=== PATIENT | male | born 1965 ===

== ENCOUNTER 2017-03-27 17:15 | Inpatient (IN) | payer SELFPAY ==
[2017-03-27] MEDS ORDERED: Ketorolac Tromethamine 30 MG/ML VIAL ONE (17:56)
--- NOTE | 2017-03-27 18:06 | RAD ---
SINGLE VIEW OF THE CHEST 03/27/17 HISTORY: chest pain FINDINGS: Single view of the chest shows a normal sized cardiomediastinal silhouette. There is no evidence of c onsolidation, mass, or pleural effusion. The bones are unremarkable. IMPRESSION: No evidence of acute cardiopulmonary disease. POS: [facility]
[2017-03-27] MEDS ORDERED: diphenhydrAMINE 25 MG CAP PO PRN (18:17)
[2017-03-27] MEDS ORDERED: Naloxone HCl 0.4 mg/ml Vial IV PRN (18:17)
[2017-03-27] MEDS ORDERED: diphenhydrAMINE 50 MG/ML VIAL IVP PRN (18:17)
[2017-03-27] MEDS ORDERED: HYDROmorphone 10 mg/100 ml CADD IVPB PRN (18:17)
[2017-03-27] MEDS ORDERED: Dextrose 5% in Water 1,000 ML IV PRN (18:17)
[2017-03-27] MEDS ORDERED: diphenhydrAMINE 50 MG/ML VIAL IM PRN (18:17)
[2017-03-27] MEDS ORDERED: Ondansetron HCl/PF 4 MG/2 ML Vial IVP PRN (18:17)
[2017-03-27] MEDS ORDERED: Dextrose 50% Abboject 50 ML SYRINGE SLOW IVP PRN (18:17)
[2017-03-27] MEDS ORDERED: Promethazine HCl 25 MG/ML VIAL IM PRN (18:17)
[2017-03-27 18:28] LABS: Hemoglobin 13.2 g/dL (14.0-18.0); Mean Corpuscular HGB CONC 33.3 g/dL (32.0-36.0); Mean Corpuscular Hemoglobin 30.7 pg (27.0-31.0); Mean Corpuscular Volume 92.2 fl (80.0-94.0); Mean Platelet Volume 7.2 fL (7.4-10.4); Platelet Count 264 thou/uL (130-400); White Blood Cell (WBC) Count 17.9 thou/uL (4.8-10.8)
[2017-03-27] MEDS ORDERED: Adacel (T-DAP) 0.5 ML VIAL ONE (18:29)
[2017-03-27] MEDS ORDERED: Communication Order-Pharmacy FS SCH (18:30)
--- NOTE | 2017-03-27 18:31 | RAD ---
SINGLE VIEW OF THE ABDOMEN 03/27/17 COMPARISON: None. HISTORY: Fall from 20 feet with abdominal pain. FINDINGS: Single view of the abdomen shows a nonspecific, nonobstructed bowel gas pattern. Degenerative changes are seen in the spine. No suspicious calcifications are present. IMPRESSION: Nonobstructed bowel gas pattern. POS: [facility]
[2017-03-27 18:45] LABS: Band 7 % (5-11); Lymphocytes 1 % (21-51); MDiff Complete? YES; Monocytes 1 % (0-10); Neutrophil 91 % (42-75); PLT Morphology Comment Appears Adequate
--- NOTE | 2017-03-27 19:12 | HP ---
DATE OF ADMISSION: 03/27/2017 HISTORY OF PRESENT ILLNESS: This is a 51-year-old -[place] man, who was on top of a roof rep lacing wooden shingles. He fell 20 feet to the ground, landing on his back. Although patient denied any head trauma, he lost two incisors with this fall. He denied any loss of consciousness. Inciden t occurred at approximately 10:30 a.m. He was evaluated in [place] and transferred to [facility] in [place], [place] for upper level care of polytrauma. It has been over 6 hours since the fall. The patient arrived hemodynamically stable with a Bernabe coma scale of 15. He is moving all extremi ties and following commands. He reports 10/10 back and anterior chest wall pain. He denied any dysp ananth. He reports also 3/10 new onset abdominal pain. PAST MEDICAL HISTORY: The patient denies any previous medical problems. PAST SURGICAL HISTORY: Denies any previous surgeries. SOCIAL HISTORY: He is single, lives at home with his brother. 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 He admit s to smoking half pack of cigarettes per day and has done so for over 20 years. He drinks 2-3 beers daily. He denies any illicit drug abuse. FAMILY HISTORY: Notable for essential hypertension in both parents and his father from complica tions of coronary arterial disease. He denies any family history of diabetes mellitus or cancer. CURRENT MEDICATIONS: None. ALLERGIES: CODEINE. REVIEW OF SYSTEMS: A 10-point review of systems essentially unremarkable except for as stated in pas t medical history and chief complaint. PHYSICAL EXAMINATION: GENERAL: This reveals a 51-year-old normally developed man, who is otherwise coherent and interactiv e and appears stated age. The patient is alert and oriented x3, appears to be in moderate acute dist ress secondary to pain in the aforementioned areas. VITAL SIGNS: Initial vital signs, blood pressure 152/107, pulse 84, respiratory rate 30, temperature 98.6 degrees Fahrenheit, oxygen saturation 96% on room air. Once patient was given Toradol 30 mg in travenously, followup blood pressure was noted at 122/79, pulse is 81. HEENT: Reveals normocephalic and atraumatic. His pupils are equal, round, and reactive to light and accommodation. Extraocular muscles are intact bilaterally. He has no sclerae icterus present. Ora l mucosa is pink and moist. No lesions are noted. He has dental fractures involving the lower two i ncisors. NECK: Cervical spine is nontender to palpation, active or passive range of motion. HEART: Reveals regular rate and rhythm, no murmurs or gallops auscultated. LUNGS: Clear to auscultation bilaterally. Breathing is regular and unlabored. ABDOMEN: Soft and nondistended. He has nonspecific abdominal tenderness to palpation with no gross rebound tenderness present. Bowel sounds in all four quadrants appear normoactive. Liver and spleen are nonpalpable below costal margins. EXTREMITIES: Reveals 2+ radial and pedal pulses bilaterally. Right upper extremity is immobilized i n a long splint. He has good capillary refills. MUSCULOSKELETAL: Thoracic spine is nontender to palpation. The patient was maintained in neutral po sition during examination. I did not attempt to palpate the lumbar spine, known appropriate injuries in the area. PERTINENT LABORATORY AND RADIOGRAPHIC STUDIES: I have reviewed all laboratory and radiographic studi es from [place], which includes CBC with 9500 white blood cells, hemoglobin 13.7, hematocrit is 41 .4, platelet count is 268,000. Metabolic profile: Sodium 134, potassium 3.7, chloride is 101, bicar bonate 21, BUN 12, creatinine is 1.1, glucose is 97, total bilirubin 0.7, AST and ALT normal at 60 an d 75 respectively. Serum alcohol level is 45 mg per deciliter. Toxicology screen is negative. I nunez ve also reviewed the radiographic studies, which includes an unremarkable head and cervical spine CT scan. Facial CT scan does not reveal any fractures except for the dental fractures. CT scan of the chest is unremarkable for any acute intrathoracic pathology. CT scan of the abdomen and pelvis revea led no acute intraabdominal pathology. CT scan of the thoracic spine revealed no fractures or disloc ation. CT scan of the lumbar spine is remarkable for a 50% compression of L1 with no significant ret ropulsion. X-ray of the right upper extremity is remarkable for nondisplaced compression fractures o f the distal radius and ulna. IMPRESSION: 1. Status post fall from a 20 foot roof. 2. Dental fractures. 3. L1 compression fracture with no neurological deficits. 4. Complete nondisplaced right distal radius and ulna fracture at the wrist. 5. History of ethanol abuse. PLAN: 1. Neurosurgical consultation regarding the L1 fracture. 2. Orthopedic surgical consultation regarding the right wrist fracture. 3. The patient will be admitted in the general surgical floor where we will continue with physical a nd occupational therapy. 4. Spinal column will be mobilized as patient will be placed supine flat until definitive neurosurgi christofer evaluation has been accomplished. 5. Continue with serial neurological and physical examination. 6. Initiate nonpharmacological VTE prophylaxis. 7. Due to the new onset abdominal pain, we will repeat CBC and serum lipase to exclude any acute ons et pancreatitis of which the patient is at risk for. Above findings and plan discussed with the patient who indicates understanding of information given. I answered his questions. The patient has granted consent for this admission.
--- NOTE | 2017-03-27 19:19 | RAD ---
TWO VIEWS OF THE RIGHT WRIST: 03/27/17 COMPARISON: None. HISTORY: Right wrist injury with pain. FINDINGS: Two views of the right wrist shows an overlying splint which obscures fine bony and soft tissue detai l. There is a comminuted fracture of the distal radial metaphysis which appears to extend to the radi ocarpal joint. An associated ulnar styloid fracture may also be present. IMPRESSION: Comminuted intra-articular distal radius fracture. POS: [facility]
--- NOTE | 2017-03-27 21:00 | PRG ---
DATE OF SERVICE: 03/27/2017 SUBJECTIVE: This is a 51-year-old male admitted to our hospital earlier today by the trauma team for compression fracture, pulmonary contusions and right wrist fracture, status post fall from roof. Ne urosurgery has seen and evaluated the patient. They have ordered a TLSO brace. I have discussed the case with Orthopedic Surgery. They planned for operative intervention to his wrist tomorrow. Upon my evaluation, the patient is resting in bed and vocalized no complaint. OBJECTIVE: VITAL SIGNS: Reviewed and stable. GENERAL: The patient is resting in bed, in no acute distress. RESPIRATORY: Breathing is nonlabored. EXTREMITIES: Orthopedic dressing is clean, dry and intact. ASSESSMENT AND PLAN: As documented in history and physical. Continue care as ordered. Continue to monitor. N.p.o. at midnight. Gentle IV fluid hydration and a.m. labs
[2017-03-27] MEDS: Sodium Chloride 0.9% 1,000 ML IV SCH (21:02)
[2017-03-27 21:31] VITALS: BMI 22.9
[2017-03-27] MEDS: Ketorolac Tromethamine 30 MG/ML VIAL IVP SCH (22:15)
--- NOTE | 2017-03-27 22:36 | CON ---
DATE OF CONSULTATION: 03/27/2017 ATTENDING PHYSICIAN: Dr. Cristhian Elias. HISTORY OF PRESENT ILLNESS: The patient is a 51-year-old -[place] male who presented as a transfer from [facility] after falling 20 feet of a roof. Patient reports he lost his balance before falling backwards off the roof, incident occurred approximately 10:30 a.m. He was evaluated with trauma scans, which were notable for a dental fractures and L1 burst fracture with mild retropulsion. He also had obvious deformity of the right wrist and was found to have a right distal radius fracture and ulnar fracture of the right wrist. CT of the head and cervical spine were negative for acute injury. I have seen the patient at bedside. He is lying comfortably in the bed in no acute distress. He has a GCS of 15. He is A&O x4. He is complaining of some moderate pain to the low back. He is moving all extremities, 5/5 strength throughout. He has no sensation deficits and denies any saddle anesthesia or bowel or bladder issues. PAST MEDICAL HISTORY: Patient reports he is otherwise healthy, denies any other medical problems. PAST SURGICAL HISTORY: Patient denies any prior surgeries. SOCIAL HISTORY: He smokes approximately half pack of cigarettes per day, drinks socially. Denies any drug use. FAMILY HISTORY: Noncontributory. ALLERGIES: Patient is allergic to CODEINE. REVIEW OF SYSTEMS: Per HPI. PHYSICAL EXAMINATION: CONSTITUTIONAL: Resting comfortably in bed in no acute distress. GCS of 15. HEENT: Head: Normocephalic, atraumatic. Eyes: PERRLA. Extraocular movements intact. ENT: Oral mucosa is pink intact and moist. He has a normal voice. NECK: Free active range of motion, nontender to palpation. CARDIOVASCULAR: Regular rate and rhythm. LUNGS: Patient is breathing comfortably. Symmetric chest expansion. ABDOMEN: Nontender to palpation. No evidence of dyspnea. BACK: He has pain with any ROM of the back. MUSCULOSKELETAL: He has free active range of motion of all extremities. He has a splint on the right wrist. He has no reflex asymmetry or focal motor weakness. NEUROLOGIC: He is and A&O x4. No focal neurologic deficits are appreciated. ASSESSMENT AND PLAN: The patient sustainted an L1 burst fracture with mild retropulsion after a fall from a roof that was approximately 20 feet. He is neurologically intact with no focal motor weakness. I have ordered a TLSO brace , which the patient should wear all the time. We will plan to follow up with the patient as an outpatient basis in 4 weeks with repeat x-rays. Please reach out to Neurosurgery Service for additional questions or concerns. JIMMY
[2017-03-28] MEDS: Sodium Chloride 0.9% 1,000 ML IV SCH ×4 (03:54→21:35)
[2017-03-28] MEDS: Ketorolac Tromethamine 30 MG/ML VIAL IVP SCH ×3 (05:01→17:45)
[2017-03-28 05:34] LABS: #Lymphocytes 1.3 thou/uL (1.20-3.40); #Monocytes 0.8 thou/uL (0.11-0.59); #Neutrophils 9.3 thou/uL (1.40-6.50); %Basophils 0.4 % (0.0-1.0); %Eosinophils 0.1 % (0.0-10.0); %Lymphocytes 11.4 % (21.0-51.0); %Monocytes 7.3 % (0.0-10.0); %Neutrophils 80.8 % (42.0-75.0); Hemoglobin 12.9 g/dL (14.0-18.0); Mean Corpuscular HGB CONC 33.2 g/dL (32.0-36.0); Mean Corpuscular Hemoglobin 30.4 pg (27.0-31.0); Mean Corpuscular Volume 91.4 fl (80.0-94.0); Mean Platelet Volume 7.4 fL (7.4-10.4); Platelet Count 251 thou/uL (130-400); RBC Distribution Width 12.1 % (11.5-14.5); Red Blood Cell (RBC) Count 4.26 mill/uL (4.70-6.10); White Blood Cell (WBC) Count 11.4 thou/uL (4.8-10.8)
[2017-03-28 06:01] LABS: ALT (SGPT) 55 U/L (8-55); AST (SGOT) 52 U/L (5-34); Albumin 3.9 g/dL (3.5-5.0); Alkaline Phosphatase 67 U/L (40-150); Anion Gap 12 mmol/L (10-20); BUN (Urea Nitrogen) 11 mg/dL (8.9-20.6); Bilirubin, Total 1.2 mg/dL (0.2-1.2); Calc. Creatinine Clearance 107 mL/min (70-130); Calcium 8.5 mg/dL (7.8-10.44); Carbon Dioxide 22 mmol/L (22-29); Chloride 102 mmol/L (98-107); Estimated GFR-MDRD Greater than 90; Globulin 2.8 g/dL (2.4-3.5); Glucose 98 mg/dL (70-105); Potassium 4.3 mmol/L (3.5-5.1); Protein, Total 6.7 g/dL (6.0-8.3); Sodium 132 mmol/L (136-145)
[2017-03-28] MEDS ORDERED: CEFAZOLIN/Water 2 GM/20 ML SYRINGE SLOW IVP SCH (09:00)
--- NOTE | 2017-03-28 10:31 | CON ---
DATE OF CONSULTATION: 03/28/2017 We were asked to see patient via trauma in the Emergency Room. HISTORY OF PRESENT ILLNESS: He is a 51-year-old male who was replacing wood shingles. He fell about 20 feet to the ground, landing on his back. No loss of consciousness, but had significant back pain and right wrist pain after the fall. He was evaluated at [place] and after evaluation was transf erred to [facility] for higher level of care. He again complains of back pain. The right wrist is sore, but again it is splinted. He is able to move all of his digits well and denies any numbness a nd tingling. PAST MEDICAL HISTORY: He states he is healthy. PAST SURGICAL HISTORY: None. SOCIAL HISTORY: He resides with his brother. 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 He does smoke half pack of cigarettes . Has few ETOH beverages. FAMILY HISTORY: Noncontributory. CURRENT MEDICATIONS: None. ALLERGIES: CODEINE. REVIEW OF SYSTEMS: The patient is an otherwise healthy. His current complaints are back pain and a little shortness of breath, which he has given a breathing treatment for and right wrist pain. Rest of review of systems is negative. PHYSICAL EXAMINATION: GENERAL: Well-nourished male, alert, in no acute distress, resting in bed. Speech clear. Answers q uestions appropriately. He is alert and oriented x3. HEENT: Within normal limits. Face is symmetric, tongue midline. NECK: Supple. Trachea midline. MUSCULOSKELETAL: Right upper extremity is splinted. He is moving his digits well and has good sensa tions in left upper extremity and normal exam. Torso: Patient is in a TLSO brace. Lower extremity exams, he is moving both of those fairly well, but has a lot of pain in doing so with his lumbar comp ression fracture. ASSESSMENT: 1. Trauma falling after 20 feet. 2. Multiple injuries. 3. Right distal radial fracture and ulnar fracture. PLAN: I spoke with patient and he is amenable to go forth with surgery. I explained that we are goi ng to do an ORIF of the right wrist with some plating and will be in a splint afterwards. As for the rest of his injuries, they will be managed by Trauma. PT will start after the wrist if trauma is am enable to go forth without any stable. Reviewed x-rays with Dr. Dc and patient and he understand s the procedure that he is about to undergo today. Currently, he is n.p.o. We will get him consente d and antibiotics and get admitted to the OR this morning.
[2017-03-28] MEDS ORDERED: CEFAZOLIN/Water 2 GM/20 ML SYRINGE ONE (10:49)
[2017-03-28] MEDS ORDERED: Fentanyl 100 MCG/2 ML VIAL ONE ×3 (11:31→13:29)
[2017-03-28] MEDS ORDERED: traMADol HCl 50 MG TAB PO PRN (11:45)
[2017-03-28] MEDS ORDERED: HYDROcodone/Acetaminophen 10/325 mg Tablet PO PRN ×2 (11:46)
[2017-03-28] MEDS ORDERED: Meperidine HCl/PF 25 MG/ML VIAL ONE (12:45)
[2017-03-28] MEDS ORDERED: Lidocaine 1% PF 5 ML VIAL ONE (13:53)
[2017-03-28] MEDS ORDERED: Ondansetron HCl/PF 4 MG/2 ML Vial ONE (13:53)
[2017-03-28] MEDS ORDERED: Propofol 200 MG/20 ML VIAL ONE (13:53)
--- NOTE | 2017-03-28 13:59 | RAD ---
RIGHT WRIST INTRAOPERATIVE FLUOROSCOPY 3 VIEWS: HISTORY: Risk fracture. FINDINGS: Intraoperative fluoroscopy was provided for internal fixation as performed by Dr. Dc. Three spot fluoroscopic images show volar compression plate and multiple screws to transfix the comminuted dist al radial fracture, in anatomic alignment. Fluoro time=14 seconds. POS: [facility]
--- NOTE | 2017-03-28 16:04 | PRG ---
DATE OF SERVICE: 03/28/2017 SUBJECTIVE: The patient is hospital day #2 status post fall from a roof, which he sustained an L1 co mpression fracture, a right distal radius fracture and dental injury. The patient overnight was eval uated by Neurosurgery. They recommended fulltime TLSO brace when out of bed or when sitting up more than 30 degrees. The patient is scheduled to undergo orthopedic procedure of his right wrist fractur e for his displaced distal radius fracture. Otherwise, the patient did well overnight. His pain was controlled with a BOOK SHELVER and he has been n.p.o. OBJECTIVE: VITAL SIGNS: Temperature is 99.5, heart rate 89, blood pressure 123/69, respirations 16 and oxygen s aturation 96% on room air. GENERAL: The patient is resting comfortably in bed. He is awake, alert, and oriented x3. [place] c mari scale is 15. HEENT: Shows his dental injuries, otherwise unremarkable. NECK: Nontender. Trachea is midline. There is no JVD. LUNGS: Clear to auscultation with good inspiratory and expiratory effort. HEART: Regular rate and rhythm. ABDOMEN: Soft, flat, nontender with hypoactive bowel sounds. Pelvis stable. EXTREMITIES: Neurovascularly intact x4. LABORATORY FINDINGS: White blood cell count 11.4, hemoglobin 12.9, hematocrit 39.0 and platelets 251 . Sodium 132, potassium 4.3, chloride 102, CO2 of 22, BUN 11, creatinine 0.85 and glucose 98. LFTs are unremarkable. There are no radiographs to review this morning. ASSESSMENT AND PLAN: 1. Status post fall from roof. 2. L1 compression fractures to be treated with a TLSO brace. 3. Displaced right distal radius fracture. Awaiting orthopedic operative intervention. 4. Dental injuries. Current plan is to have the patient follow up with his dentist as an outpatient . We will continue supportive care and make adjustments postoperatively. The evaluation and examina tion were discussed with Dr. Mercado during rounds this morning.
--- NOTE | 2017-03-28 18:57 | OP ---
PREOPERATIVE DIAGNOSIS: Displaced intra-articular fracture, distal radius. POSTOPERATIVE DIAGNOSIS: Displaced intra-articular fracture, distal radius. SURGEON: Yann Dc M.D. DATA TYPIST: Abimael Jeter PA-C. BLOOD LOSS: Minimal. SPECIMENS: None. DRAINS: None. COMPLICATIONS: None. DESCRIPTION OF PROCEDURE: The patient was taken to the operating room where general anesthesia was i nduced. Lower arm was prepped and draped in usual sterile fashion. After exsanguination, tourniquet was inflated to 250 mmHg. I made a FCR approach. The fracture was identified and reduced as anatom ically as possible. There was some dorsal comminution; I could not totally correct that. This is an intra-articular fracture with a free floating styloid piece and a DRUJ piece. A 5-hole x 3-hole Syn thes variable angle plate was applied to the volar cortex, screws were inserted in the usual fashion. X-rays were obtained, which showed appropriate reduction and placement. Tourniquet was released. Irrigation was performed. Hemostasis obtained. Subcutaneous tissue closed with 2-0 Vicryl, the skin was closed with allan. Sterile dressings applied. There were no complications.
[2017-03-28] MEDS: Acetaminophen 500 MG TAB PO SCH (21:36)
[2017-03-28] MEDS: traMADol HCl 50 MG TAB PO SCH (21:36)
--- NOTE | 2017-03-28 22:47 | PRG ---
DATE OF SERVICE: 03/28/2017 SUBJECTIVE: [facility] 51[facility] postop day 0, status post fall from roof with lumbar fracture, pulmonary contusion, and right wrist fracture. Patient has returned from the operating room after surgical intervention to his wrist. Upon my evaluation, he vocalizes no complai nts. States the pain has been controlled. OBJECTIVE: VITAL SIGNS: Reviewed and stable. GENERAL: Patient is resting in bed in no acute distress. Breathing is nonlabored. ASSESSMENT AND PLAN: As documented in daily progress note. Continue care as ordered. Continue to m onitor. PT and OT in the morning.
[2017-03-29] MEDS: Ketorolac Tromethamine 30 MG/ML VIAL IVP SCH ×4 (00:51→17:52)
[2017-03-29] MEDS: traMADol HCl 50 MG TAB PO SCH ×4 (04:28→21:33)
[2017-03-29] MEDS: Acetaminophen 500 MG TAB PO SCH ×4 (04:29→21:32)
[2017-03-29 06:07] LABS: #Lymphocytes 1.3 thou/uL (1.20-3.40); #Monocytes 0.8 thou/uL (0.11-0.59); #Neutrophils 6.2 thou/uL (1.40-6.50); %Basophils 0.2 % (0.0-1.0); %Eosinophils 0.3 % (0.0-10.0); %Lymphocytes 15.5 % (21.0-51.0); %Monocytes 9.9 % (0.0-10.0); %Neutrophils 74.1 % (42.0-75.0); Mean Corpuscular HGB CONC 32.6 g/dL (32.0-36.0); Mean Corpuscular Hemoglobin 30.1 pg (27.0-31.0); Mean Corpuscular Volume 92.3 fl (80.0-94.0); Mean Platelet Volume 7.2 fL (7.4-10.4); Platelet Count 215 thou/uL (130-400); RBC Distribution Width 12.1 % (11.5-14.5); Red Blood Cell (RBC) Count 3.98 mill/uL (4.70-6.10); White Blood Cell (WBC) Count 8.4 thou/uL (4.8-10.8)
[2017-03-29] MEDS: Sodium Chloride 0.9% 1,000 ML IV SCH (06:12)
[2017-03-29 06:27] LABS: Anion Gap 10 mmol/L (10-20); BUN (Urea Nitrogen) 7 mg/dL (8.9-20.6); Calc. Creatinine Clearance 118 mL/min (70-130); Calcium 8.3 mg/dL (7.8-10.44); Carbon Dioxide 25 mmol/L (22-29); Chloride 103 mmol/L (98-107); Estimated GFR-MDRD Greater than 90; Glucose 112 mg/dL (70-105); Magnesium 2.2 mg/dL (1.6-2.6); Phosphorus 2.3 mg/dL (2.3-4.7); Sodium 134 mmol/L (136-145)
--- NOTE | 2017-03-29 19:01 | PRG ---
DATE OF SERVICE: 03/29/2017 ATTENDING PHYSICIAN: Dr. Mercado. SUBJECTIVE: The patient is hospital day #3 status post 20-foot fall from a roof in which he sustaine d a L1 compression fracture, right radius and ulna fracture as well as a dental injury. He is now po stop day #1 status post open reduction internal fixation of his right distal radius. The patient masha erated that procedure well. He was also fitted with a TLSO brace by Neurosurgery. Patient has been up and ambulating around the floor this morning. His appetite is good. He does report passing some gas, but has not had a bowel movement. He says his pain is well controlled. OBJECTIVE: VITAL SIGNS: BP 124/72, pulse 78, temperature 98.4, respirations 14, O2 sat 92% on room air. GENERAL: Patient is resting comfortably in bed. He is alert and in no acute distress. HEENT: Unremarkable except for his dental injuries. RESPIRATORY: His lungs are clear to auscultation bilaterally with normal effort. CARDIOVASCULAR: He has a regular rate and rhythm, 2+ distal pulses bilaterally. ABDOMEN: Soft, nontender, nondistended. His bowel sounds are hypoactive. EXTREMITIES: He is neurovascularly intact x4. LABORATORY DATA: Hematology: White blood cells 8.4, hemoglobin 12.0, hematocrit 36.7, platelets 215 . Chemistry: Sodium 134, potassium 4.0, chloride 103, bicarbonate 25, BUN 7, creatinine 0.77, gluco se 112. RADIOGRAPHIC FINDINGS: There are no radiographs reviewed today. ASSESSMENT: 1. Status post fall from 20 foot height. 2. L1 compression fracture. 3. Displaced distal right radius fracture. 4. Multiple missing upper incisors. PLAN: The patient has been wearing his TLSO brace and has been ambulating around the floor without d ifficulty. His pain is well controlled. His Mcwilliams catheter has been removed and he is able to void. His only barrier to discharge at this point is that he has still had a bowel movement. We have ord roxanna Schultz to help with this. This patient was seen and examined along with Dr. Angelito Mercado who agrees with the assessment and pl an.
[2017-03-29] MEDS ORDERED: Senokot S 8.6-50 MG TAB PO SCH (21:00)
[2017-03-29] MEDS: Senokot S 8.6-50 MG TAB PO SCH (21:33)
--- NOTE | 2017-03-29 21:46 | PRG ---
DATE OF SERVICE: 03/29/2017 SUBJECTIVE: This is a 51-year-old gentleman status post fall from roof with lumbar fracture, radial fracture and pulmonary contusions. The patient is working with physical therapy and mobilizing. Jaison n has been controlled with p.o. analgesics; however, he has not had a bowel movement. He was started on stool softeners this evening. Upon my evaluation, the patient localizes no complaints. OBJECTIVE: VITAL SIGNS: Reviewed and stable. GENERAL: The patient is resting in bed. No acute distress. Breathing is nonlabored. He is wearing his TLSO brace. ASSESSMENT AND PLAN: As documented in daily progress note. Continue care as ordered. Continue to m onitor. Once patient has had a bowel movement, he will be a candidate for discharge.
[2017-03-30] MEDS: Ketorolac Tromethamine 30 MG/ML VIAL IVP SCH (00:41)
[2017-03-30] MEDS: traMADol HCl 50 MG TAB PO SCH ×4 (02:20→20:23)
[2017-03-30] MEDS: Acetaminophen 500 MG TAB PO SCH ×4 (02:21→20:22)
[2017-03-30] MEDS: Polyethylene Glycol 3350 17 GM Packet PO SCH (08:22)
[2017-03-30] MEDS: Senokot S 8.6-50 MG TAB PO SCH ×2 (08:23→20:22)
--- NOTE | 2017-03-30 19:21 | PRG ---
DATE OF SERVICE: 03/30/2017 ATTENDING PHYSICIAN: Dr. Ander Francis. SUBJECTIVE: The patient is hospital day #4 status post 20-foot fall from a roof in which he sustaine d an L1 compression fracture, right radius and ulna fracture as well as a dental injury. He is now p ostop day #2 status post ORIF of his right distal radius. The patient tolerated that procedure well. He has been fitted with a TLSO brace by Neurosurgery. The patient is tolerating a regular diet wel l and reports his pain control is adequate. However, he has not had a bowel movement. He is passing gas, however. OBJECTIVE: VITAL SIGNS: BP 161/87, pulse 79, temperature 98.4, respirations 18, O2 sat 94% on room air. GENERAL: The patient is resting comfortably in bed. He is alert, in no acute distress. HEENT: Unremarkable except for upper incisor damage. RESPIRATORY: His lungs are clear to auscultation bilaterally with normal effort. CARDIOVASCULAR: Regular rate and rhythm, 2+ distal pulses bilaterally. ABDOMEN: Soft, nontender, nondistended. Bowel sounds are normal. EXTREMITIES: He is neurovascularly intact x4. NEUROLOGIC: His GCS is 15. LABORATORY FINDINGS: There are no significant laboratory findings. RADIOGRAPHIC FINDINGS: There are no images to review today. ASSESSMENT: 1. Status post fall from 20-foot height. 2. L1 compression fracture. 3. Displaced distal right radius fracture. 4. Missing upper incisors. PLAN: The patient continues to report adequate pain control and has been ambulating around the floor without difficulty. He still has not had a bowel movement despite having both Senokot and MiraLax. His only barrier to discharge at this point is his return of bowel function. Once that returns, he will be discharged home. This patient was seen and examined along with Dr. Ander Francis on rounds this morning who agrees wi th the assessment and plan.
--- NOTE | 2017-03-30 21:19 | PRG ---
DATE OF SERVICE: 03/30/2017 SUBJECTIVE: This is a 51-year-old male status post fall with pulmonary contusion, lumbar fracture an d right wrist fracture. The patient has remained hemodynamically stable and pain is controlled; donis anastasiia, he has not had a bowel movement. Upon my evaluation, the patient states he is passing gas, but did not have a bowel movement today and he vocalized no other complaints. OBJECTIVE: VITAL SIGNS: Reviewed and stable. GENERAL: The patient is sitting on the edge of bed, in no acute distress. RESPIRATORY: Breathing is nonlabored. ASSESSMENT AND PLAN: As documented in daily progress note. If no bowel movement tonight, add lactul ose tomorrow. Continue care as ordered. Continue to monitor.
[2017-03-30] MEDS: Ibuprofen 600 MG TAB PO SCH (21:55)
[2017-03-31] MEDS: traMADol HCl 50 MG TAB PO SCH ×3 (02:58→16:25)
[2017-03-31] MEDS: Acetaminophen 500 MG TAB PO SCH ×3 (02:59→16:25)
[2017-03-31] MEDS: Ibuprofen 600 MG TAB PO SCH ×2 (06:16→16:27)
[2017-03-31] MEDS: Senokot S 8.6-50 MG TAB PO SCH (08:43)
[2017-03-31] MEDS: Polyethylene Glycol 3350 17 GM Packet PO SCH (08:45)
--- NOTE | 2017-03-31 12:30 | DIS ---
DATE OF ADMISSION: 03/27/2017 DATE OF DISCHARGE: 03/31/2017 ADMITTING PHYSICIAN: Dr. Angelito Mercado. CONSULTING PHYSICIAN: 1. Dr. Yann Dc, Orthopedics. 2. Dr. Cristhian Elias, Neurosurgery. REASON FOR HOSPITALIZATION: Fall from a roof with L-spine and right wrist fracture. HOSPITAL DIAGNOSES: 1. Status post fall from 20 feet roof. 2. Dental fractures. 3. L1 compression fracture, no neurologic deficits. 4. Complete nondisplaced right distal radius and ulna fracture. 5. History of ETOH abuse. PROCEDURES: Open reduction external fixation right distal radius fracture. DATE OF SURGERY: 03/27/2017 SURGEON: Dr. Yann Dc. Please refer to Dr. Dc's complete operative report for details. PATIENT'S DISCHARGE CONDITION: Good. DISCHARGE DISPOSITION: Discharged to home. BRIEF HISTORY OF HOSPITALIZATION: The patient is a 51-year-old male, who was on his roof, replacing wood and shingles when he fell approximately 20 feet to the ground. He was taken to an outside [facility] where a right wrist fracture and L-spine fracture were identified. He was transferred to [facility] for higher level of care. He remained hemodynamically stable and neurologic intact. He was seen and evaluated by Dr. Mercado of the Trauma Service and admitted to the hospital. Dr. Dc, Orth opedics, was consulted and took the patient to the OR. Dr. Elias, Neurosurgery, was also consulte d. The patient was placed in TLSO brace for L-spine fractures. He was also noted that he lost two i ncisor teeth when he fell. He began ambulating on the floor with physical therapy. His pain was wel l controlled with tramadol. It was noted that he had several episodes of mild hypertension when he w as hospitalized. He did not report taking any antihypertensives at home prior to hospitalization. Rosa wyatt was not placed on any antihypertensive medications. He is to follow up with his PCP in 1 week for continued monitoring of his blood pressure. He is also to follow up with Dr. Elias and Dr. Dc . He was given a prescription for tramadol for pain medication and he will be discharged to home. The patient was seen and examined with Dr. Mercado, attending trauma surgeon, who agrees with the asses sment and plan for discharge. This is Amanda Aguilar NP dictating discharge summary for Dr. Angelito Mercado.
[2017-03-31 12:42] VITALS: BP 159/87; TEMP 98.2
== END 2017-03-31 17:15 | disposition home or self-care (01) | DRG 511 ==
LOC: ERS 17:15 → SURG A 17:49
PROVIDERS: ADMIT Surgery; ATTEND Surgery
PROC: 0PSH04Z Reposition Right Radius with Internal Fixation Device, Open Approach (ICD-10-PCS; principal; 2017-03-28)
DX: S52.571A Other intraarticular fracture of lower end of right radius, initial encounter for closed fracture (principal); S32.019A Unspecified fracture of first lumbar vertebra, initial encounter for closed fracture; S27.329A Contusion of lung, unspecified, initial encounter; S02.5XXA Fracture of tooth (traumatic), initial encounter for closed fracture; S52.601A Unspecified fracture of lower end of right ulna, initial encounter for closed fracture; F17.210 Nicotine dependence, cigarettes, uncomplicated; W13.2XXA Fall from, out of or through roof, initial encounter; Y92.008 Other place in unspecified non-institutional (private) residence as the place of occurrence of the external cause; I10 Essential (primary) hypertension
CPT/HCPCS: 36415; 71045; 74018; 76001; 80048; 80053; 83690; 83735; 84100; 85025; 90471; 90715; 94640; 96374; C1713; G0390; G8978-GP-CH; G8979-GP-CH; G8980-GP-CH; G8987-GO-CI; G8988-GO-CI; G8989-GO-CI; J1885; J2001; J2175; J2405; J2704; J3010; J7620